=== PATIENT | female | born 1975 | race Caucasian/White ===

== ENCOUNTER 2023-06-19 09:34 | Emergency (ER) | payer OTHER, SELFPAY ==
--- NOTE | ~2023-06-19 | XR_ITS ---
XR foot LT min 3V 06/19/2023 09:54 Indication: Left foot pain after injury Procedure: 4 views left foot Comparison: No prior studies for comparison. Findings: There is a nondisplaced fracture proximal aspect of the second metatarsal. No other fractur e identified. No significant soft tissue abnormality. No foreign bodies Impression: 1: Nondisplaced fracture proximal aspect of the second metatarsal. Correlate for point tenderness. Reviewed, dictated and finalized at location B. Impression: 1: Nondisplaced fracture proximal aspect of the second metatarsal. Correlate fo r point tenderness.
[2023-06-19 09:41] VITALS: BP 110/59; PULSE 61; RESP 18; TEMP 36.4; O2SAT 100
--- NOTE | 2023-06-19 10:03 | ED.LOWEXIN ---
HPI - Extremity Injury (Lower) General Chief Complaint: Extremity Injury, Lower Stated Complaint: left foot injury Time Seen by Provider: 06/19/23 10:02 Source: patient Mode of arrival: ambulatory Limitations: no limitations History of Present Illness HPI Narrative: Negra is a 47-year-old female patient presenting to the ER today for a left foot injury. She reports she was moving some shelving on Monday and the shelf fell on top of her left foot. States she is having a lot of pain with ambulation /weight-bearing to the left foot. There is bruising and swelling noted to the top of the dorsal foot near the 2nd and 3rd metatarsal Related Data Allergies Allergy/AdvReac Type Severity Reaction Status Date / Time amoxicillin Allergy Nausea and Verified 06/19/23 10:07 Vomiting Review of Systems Review of Systems: Pertinent positives per HPI. Patient denies any fever, chills, rash, headache, visual changes, dizziness, cough, runny nose, sore throat, shortness of breath, chest pain, palpitations, nausea, vomiting, diarrhea, constipation, abdominal pain, or any urinary issues. PMFSH Comments At the time of my signature, I reviewed and agree with the nursing past medical, surgical, social, and family history. There is no relevant family history pertinent to the patient complaint. Exam Narrative: General: Well-developed, well nourished, in no apparent distress Head: Normocephalic, atraumatic. Cardio: Regular rate and rhythm, s1 and s2 normal, no murmur appreciated. Resp: Clear to auscultation bilaterally, no rhonchi, rales, wheezing or rubs. Musculoskeletal: No deformity, swelling and bruising noted over the dorsal foot over the 2nd and 3rd metatarsal cough tender to palpation over the 2nd and 3rd metatarsal, limited range of motion to the left 2nd toe due to pain, muscle strength strong and equal, peripheral pulse strong, no cyanosis, normal gait and station Course Course Emergency Course: Portions of this record may have been created with voice recognition software. Vital Signs Vital signs: Vital Signs Temperature 36.4 C 06/19/23 09:41 Pulse Rate 61 06/19/23 09:41 Respiratory Rate 18 06/19/23 09:41 Blood Pressure 110/59 L 06/19/23 09:41 Pulse Oximetry 100 06/19/23 09:41 Temperature 36.4 C 06/19/23 09:41 Pulse Rate 63 06/19/23 10:07 Respiratory Rate 18 06/19/23 10:07 Blood Pressure 129/71 06/19/23 10:07 Pulse Oximetry 100 06/19/23 10:07 Vital signs reviewed MDM - Extremity Injury (Lower) MDM Narrative Medical decision making narrative: At the time of visit patient is resting on the exam table. X-ray of the left foot was performed and shows a 2nd metatarsal closed nondisplaced fracture. short-leg posterior OCL was placed and crutches was given. Referral to Dr. Hirsch was also given. Supportive measures were discussed with the patient she voiced understanding the discharge instructions agrees to treatment plan Differential Diagnosis Differential diagnosis: Likely fracture of toe and other ( foot fracture, foot contusion, soft tissue injury) Discharge Plan Discharge Clinical Impression: Metatarsal bone fracture Qualifiers: Encounter type: initial encounter Metatarsal bone: second Fracture type: closed Fracture alignment: nondisplaced Laterality: left Qualified Code(s): S92.325A - Nondisplaced fracture of second metatarsal bone, left foot, initial encounter for closed fracture Patient Disposition: Home, Self-Care Condition: Stable Instructions: Antibiotic Form, Crutch Instructions (ED), Foot Fracture in Adults (ED) Additional Instructions: Rest, ice, elevate, and wear short leg posterior OCL until seen by ortho Tylenol/motrin for pain as discussed. Non weight bearing until cleared by orthopedic provider Follow up with orthopaedic provider this week- Contact Dr. Hirsch office to schedule an appointment Follow-up/Referrals: Mellissa Hirsch
[2023-06-19 10:07] VITALS: BP 129/71; PULSE 63; RESP 18; O2SAT 100
--- NOTE | 2023-06-19 10:19 | PC.NURSE ---
Verbal order received from EDP to cancel ankle Stirrup OCL
== END 2023-06-19 11:05 | disposition home or self-care (01) ==
LOC: ANHED 10:26
PROVIDERS: Emergency Provider Nurse Practitioner Family
DX: S92.325A Nondisplaced fracture of second metatarsal bone, left foot, initial encounter for closed fracture (principal); W20.8XXA Other cause of strike by thrown, projected or falling object, initial encounter
CPT/HCPCS: 29515; 73630; 99284

== ENCOUNTER 2025-05-15 17:18 | Outpatient (CLI) | payer OTHER, SELFPAY ==
--- NOTE | ~2025-05-15 | XR_ITS ---
XR lumbar spine 6V w bending 05/15/2025 17:45 Indication: Back pain after fall Procedure: 7 views lumbar spine Comparison: No prior studies Findings: Vertebral body and disc heights are preserved. Normal lumbar lordosis. No fracture, subluxation or dislocation. No significant alteration of alignment with flexion/extension. No evidence for spondylolisthesis. Impression: 1: No significant abnormality of the lumbar spine. Reviewed, dictated and finalized at location O. Impression: 1: No significant abnormality of the lumbar spine.
--- NOTE | ~2025-05-15 | XR_ITS ---
EXAMINATION: SACRUM/COCCYX DATE: 05/15/2025 17:45 INDICATION: Low back pain after fall TECHNIQUE: Three views sacrum/coccyx FINDINGS: No prior studies for comparison. There is no displaced fracture of the sacrum. The coccyx demonstrates overall normal morphology without acute angulation. IMPRESSION: 1. No acute displaced osseous abnormality of the sacrum. Suspicion for occult or nondisplaced sacral fracture can either be evaluated with CT or MRI. 2. Grossly normal morphology to the coccyx without acute angulation. However, due to the wide range of normal variation of the coccyx, acute injury would be best evaluated by clinical examination and patient's symptoms. Reviewed, dictated and finalized at location O.
== END 2025-05-15 17:19 | disposition home or self-care (01) ==
PROVIDERS: PCP Nurse Practitioner Family; Visit Provider Nurse Practitioner Family
DX: M54.50 Low back pain, unspecified (principal); W19.XXXA Unspecified fall, initial encounter
CPT/HCPCS: 72114; 72220